=== PATIENT | female | born 1970 | race Caucasian/White ===

== ENCOUNTER 2019-11-07 13:45 | Outpatient (CLI) | payer OTHER, BC, SELFPAY ==
--- NOTE | 2019-11-07 14:00 | DI.RAD_ITS ---
EXAM: XR SHOULDER LT COMPLETE 2+V INDICATION: Pain. COMPARISON: No exams were available for comparison TECHNIQUE: 2D digital imaging was performed. FINDINGS: No bone or joint abnormality is identified. The soft tissues are unremarkable.
--- NOTE | 2019-11-07 14:01 | DI.RAD_ITS ---
EXAM: XR SHOULDER RT COMPLETE 2+V INDICATION: Pain. COMPARISON: XR SHOULDER LT COMPLETE 2+V from 11/07/2019 TECHNIQUE: 2D digital imaging was performed. FINDINGS: No bone, joint or soft tissue abnormality is identified.
--- NOTE | 2019-11-07 14:31 | DI.RAD_ITS ---
EXAM: XR CERVICAL SP RED TRAUMA 2-3V INDICATION: Pain. COMPARISON: No exams were available for comparison TECHNIQUE: 2D digital imaging was performed. FINDINGS: There is normal alignment of the cervical spine. There is disc space narrowing at C4-5 and C5-C6. T here are endplate osteophytes present from C3-4 through C6-C7. The bones are normally mineralized. The prevertebral soft tissues are unremarkable. IMPRESSION: Moderate degenerative changes in the cervical spine.
== END 2019-11-07 14:05 ==
PROVIDERS: PCP Nurse Practitioner Family; Visit Provider Student in an Organized Health Care Education/Training Program
DX: M54.2 Cervicalgia (principal); M50.320 Other cervical disc degeneration, mid-cervical region, unspecified level; M50.323 Other cervical disc degeneration at C6-C7 level; M25.511 Pain in right shoulder; M25.512 Pain in left shoulder
CPT/HCPCS: 72040; 73030

== ENCOUNTER 2019-11-17 03:38 | Outpatient (CLI) | payer OTHER, SELFPAY ==
--- NOTE | 2019-11-17 09:16 | DI.MRI_ITS ---
EXAM: MR CERVICAL SPINE WO CLINICAL HISTORY: CERVICAL SPONDYLOSIS WITH RADICULOPATHY X 3 YEARS, M54.12. TECHNIQUE: Multiplanar multisequence MRI was performed. COMPARISON: XR CERVICAL SP RED TRAUMA 2-3V from 11/07/2019 FINDINGS: There is normal signal in the spinal cord. There is no evidence of tonsillar ectopia. At C7-T1, there is no focal disc herniation, central spinal canal or neural foraminal stenosis. At C6-C7, there is mild prominence of the osteophyte-disc complex. There is mild narrowing of the ce ntral spinal canal. No significant neural foraminal stenosis is seen. At C5-C6, there is mild prominence of the osteophyte-disc complex causing mild narrowing of the centr al spinal canal. No significant neural foraminal stenosis is seen. At C4-C5, there is prominence of the osteophyte-disc complex. This causes mild narrowing of the cent ral spinal canal. There are hypertrophic changes of the uncovertebral joint on the left causing mode rate left neural foraminal stenosis. No significant right neural foraminal stenosis is present. At C3-C4, there is mild prominence of the osteophyte-disc complex. No significant central spinal can al stenosis is seen. Mild hypertrophy of the left uncovertebral joint is present causing mild narrow ing of the left neural foramen. Significant right neural foraminal stenosis is present. At C2-C3, there is no focal disc herniation, central spinal canal or neural foraminal stenosis. IMPRESSION: Multilevel degenerative changes in the cervical spine resulting in multilevel central spinal canal an d neural foraminal stenosis as described above.
== END 2019-11-17 03:58 ==
PROVIDERS: PCP Nurse Practitioner Family; Visit Provider Student in an Organized Health Care Education/Training Program
DX: M54.2 Cervicalgia (principal); M54.12 Radiculopathy, cervical region; M25.78 Osteophyte, vertebrae; M47.22 Other spondylosis with radiculopathy, cervical region
CPT/HCPCS: 72141

== ENCOUNTER 2021-05-20 02:56 | Outpatient (CLI) | payer OTHER, SELFPAY ==
[2021-05-20 13:14] LABS: Source Nasal/Nares
[2021-05-20 16:28] LABS: COVID-19 PCR Negative (Negative)
== END 2021-05-20 02:57 | disposition home or self-care (01) ==
LOC: LBO 02:56
PROVIDERS: PCP Nurse Practitioner Family; Visit Provider Student in an Organized Health Care Education/Training Program
DX: Z20.822 Contact with and (suspected) exposure to COVID-19 (principal); Z01.818 Encounter for other preprocedural examination
CPT/HCPCS: 87635

== ENCOUNTER 2021-05-22 08:22 | Day surgery (SDC) | payer OTHER, SELFPAY ==
[2021-05-22] VITALS (9 sets, daily range): BP systolic 144–161; BP diastolic 80–95; PULSE 55–73; RESP 16–21; TEMP 36–36.5; O2SAT 94–100; BMI 25.8
--- NOTE | 2021-05-22 09:06 | W.ANESPRE ---
General Info Date of Service Date Performed: 05/22/21 Height: 5 ft 10 in Weight: 81.647 kg Body Mass Index (BMI): 25.8 Surgical Procedure: Operation Date: 05/22/21 10:40 Proposed Procedures Side Surgeon p shoulder arthroscopy with extensive debridement,subacromal decompression, possible rotator cuff Right Ross Lin MD s Shoulder Bicep Tenodesis Right Ross Lin MD Meds Allergies and Home Medications Allergies Allergy/AdvReac Type Severity Reaction Status Date / Time No Known Allergies Allergy Verified 05/22/21 08:42 Home Medication Medication Instructions Recorded [id number]-qfrimtedeuozs-nniryyay 250 2 tab PO Q6H PRN 06/20/18 mg-250 mg-65 mg tablet diclofenac potassium 50 mg tablet 50 mg PO BID 10/23/19 topiramate 25 mg capsule,extended 25 mg PO BID cap 02/15/20 release 24 hr lorazepam 0.5 mg tablet 0.5 mg PO TID PRN 05/07/20 cyclobenzaprine 10 mg tablet 5 mg PO HS tab 04/09/21 duloxetine 60 mg PO DAILY 05/20/21 sumatriptan succinate 50 mg PO PRN PRN 05/20/21 Current Visit Medications: Current Medications Generic Name Dose Route Start Last Admin Trade Name Freq PRN Reason Stop Dose Admin Ringer's Solution 1,000 mls @ 100 mls/hr 05/22/21 06:00 IV 06/20/21 23:59 INFUSION HONG Cefazolin Sodium 2,000 mg/ 100 mls @ 200 mls/hr 05/22/21 06:00 Sodium Chloride IVPB 05/22/21 16:00 PREOP HONG IV Miscellaneous Supplies 1 each 05/22/21 06:00 Iv Access IV 06/20/21 23:59 DIRECTED HONG Sodium Chloride 0 ml 05/22/21 06:00 Normal Saline Flush 10 Ml Syr IV 06/20/21 23:59 PRN PRN Sodium Chloride 0 ml 05/22/21 06:00 Normal Saline 10 Ml Vial IJ 06/20/21 23:59 DIRECTED PRN Sterile Water 0 ml 05/22/21 06:00 Water,Injection,Sterile 10 Ml Vial IJ 06/20/21 23:59 DIRECTED PRN PFSH Active Problems Active Problems: Problem Status Onset Code Shoulder impingement syndrome M75.40 Screening for breast cancer Z12.39 Breast mass N63.0 Preventative health care Z00.00 Rhomboid pain M79.18 SLAP lesion of right shoulder ~01/2017 S43.431A Bilateral shoulder bursitis M75.51, M75.52 Tendonitis of long head of biceps brachii of right shoulder M75.21 Scapular dyskinesis G25.89 Cubital tunnel syndrome on right G56.21 Carpal tunnel syndrome on right G56.01 Cervical spondylosis with radiculopathy ~01/2017 M47.22 Partial tear of rotator cuff ~01/2017 M75.110 Scapulothoracic bursitis of right shoulder M75.51 Arthritis of right acromioclavicular joint M19.011 Right shoulder pain M25.511 Former smoker Z87.891 Medical History Medical History Former smoker Right shoulder pain Surgical History Surgical History Hx of bursectomy Tobacco Smoking/Tobacco Use Status: Former Tobacco Use Alcohol Alcohol Intake: current Alcohol intake frequency: a few times a month Substance Use Substance use type: does not use Vital Signs and Lab Results Vital Signs Most Recent Vital Signs in EMR: Most Recent Vital Signs Temp Pulse Resp BP Pulse Ox 36.4 C L 73 16 147/85 H 100 05/22/21 08:28 05/22/21 08:28 05/22/21 08:28 05/22/21 08:28 05/22/21 08:28 Lab Results Blood Type / Crossmatch: No Data to Display Complete Blood Count: No Data to Display Complete Metabolic Panel: No Data to Display Liver Function Panel: No Data to Display Coagulation Panel: No Data to Display Cardiac Panel: No Data to Display Arterial Blood Gas: No Data to Display Venous Blood Gas: No Data to Display Pancreas Panel: No Data to Display Thyroid Panel: No Data to Display Infectious Disease: Coronavirus (COVID-19)(PCR) Negative (Negative) 05/20/21 12:13 05/20/21 Coronavirus 2019 Source Nasal/Nares 05/20/21 12:13 05/20/21 Blood Cultures: No Data to Display Toxicology Panel: No Data to Display Panel: No Data to Display Anesthesia Assessment and Plan Anesthesia History Personal History: No History of Anesthesia Complications Family History: No Family History of Anesthesia Complications Exercise Tolerance Exercise Tolerance: Metabolic Equivalents>4 Pertinent Negatives Pertinent Negatives: No Symptoms of GERD, No Major Cardiovascular Symptoms or Complaints, No Major Pulmonary Symptoms or Complaints and No History of CVA/TIA Cardiac & Pulmonary Exam Cardiac Exam: Normal S1/S2 Heart Sounds Pulmonary Exam: Clear Bilateral Breath Sounds Airway Exam Known Difficult Airway: No Mallampati Class: 1 Mouth Opening: Normal (> 3cm) Thyromental Distance: Greater than 3 cm Neck Range of Motion: Full ROM Neck Circumference: Normal Teeth Condition: Normal Dentition ASA Classification ASA Score: ASA 2 Emergency Case?: No NPO Status NPO Status: NPO Clears >2 hours, Solids >8 hours Status Status: Negative HCG Anesthesia Plan Resuscitation Status: Full Code Anesthesia Technique: General Anesthesia Airway Planned: Endotracheal Tube Monitors Used: Standard Monitors Preoperative Comments:: Interscalene Nerve Block
[2021-05-22] MEDS: Lactated Ringers 1,000 ML 100 ML IV ×2 (09:09→11:21)
[2021-05-22] MEDS: ceFAZolin 2,000 MG in Normal Saline 100 ML 200 MG IVPB (10:20)
--- NOTE | 2021-05-22 11:05 | W.ANESNERVE ---
Nerve Block Single Injection Procedure Date and Time Date Performed: 05/22/21 Procedure Start: 09:47 Location Where Procedure Performed Procedure Location: PACU Reason Performed: Postoperative Analgesia Requesting Provider: Delia Timeout Performed Timeout Performed: Yes Monitoring Used ECG, Blood Pressure and SpO2 Sterility Sterility: Hand Hygiene, Surgical Cap, Surgical Mask, Sterile Gloves, Sterile Drape/Sheet, Eye Protection and Chlorhexidine Sedation Given During Procedure Sedation Given (Indicate Dose Given): Versed IV Dose:: 2 mg Patient Mental Status Patient Mental Status: Sedate with meaningful communication Nerve Block 1st Nerve Block: Laterality: Right Block Type: Interscalene Needle / Catheter Used: 100mm SonoPlex II Local Anesthetic Bolus (Indicate Dose Given): Lidocaine used for local infiltration of skin (2 cc), Injected in 3-5ml increments after negative blood aspiration, Bupivacaine 0.5% Dose:: 10 cc and Exparel Dose:: 10cc Additives (Indicate Dose Given): None Ultrasound: Sterile probe cover and gel used Ultrasound Image Saved?: Yes Nerve Stimulator: Not Used Paresthesia: None Procedure Tolerated: No Complications and Patient tolerated well Procedure Outcome: Successful Performed By: Ba Villanueva
--- NOTE | 2021-05-22 12:10 | W.PM.DSUDISC ---
Discharge Plan Disposition Patient Disposition: HOME Condition: Stable Discharge Details Reason For Visit: Right shoulder surgery Attending Provider: Ross Lin Primary Care Provider: Nataly Cornejo Home Meds and New Rx's Prescriptions: New naproxen 250 mg tablet 250 - 500 mg PO BID PRN (Reason: Moderate pain or swelling) Qty: 60 RF: 0 aspirin 81 mg tablet,delayed release (DR/EC) 81 mg PO DAILY 14 Days Qty: 14 RF: 0 tramadol 50 mg Tablet 50 mg PO Q8H PRN PRN (Reason: severe pain) Qty: 16 RF: 0 Continued Excedrin Migraine 250-250-65 mg tablet 2 tab PO Q6H PRNRF: 0 topiramate 25 mg capsule,extended release 24hr 25 mg PO BID RF: 0 lorazepam 0.5 mg tablet 0.5 mg PO TID PRNRF: 0 diclofenac potassium 50 mg tablet 50 mg PO BID RF: 0 cyclobenzaprine 10 mg tablet 5 mg PO HS RF: 0 sumatriptan succinate 50 mg tablet 50 mg PO PRN PRNRF: 0 duloxetine 60 mg capsule,delayed release(DR/EC) 60 mg PO DAILY RF: 0 Discharge Instructions Additional Instructions: Surgery: Shoulder arthroscopy with biceps tenodesis, extensive debridement, subacromial decompression, and distal clavicle excision. Activity: You should gradually increase range of motion motion and use of your shoulder. Please perform daily stretching exercises. You may use your shoulder for all regular activities. Lifting limit 5 pounds for 4 weeks. Avoid heavy lifting, reaching overhead, and lifting away from body for about 8 weeks. You may use the sling whenever you are out of the house for a few weeks. At home it is best to remove the sling and rest the arm on a pillow at your side or support the operative side with your other hand. A physical therapy prescription will be sent electronically to start in about 2 weeks. Prescriptions: Aspirin 81 mg take 1 daily to prevent a blood clot for 2 weeks Naproxen 250 mg take 1-2 every 12 hours with a meal as needed for moderate pain Tramadol 50 mg take 1 every 8 hours as needed for severe pain You may use [id number] Tylenol (acetaminophen) as needed for mild pain. These pain medications may be taken all at once or in different combinations as needed. Also, recommend Colace (docusate) as a stool softener as surgery and pain medicine cause constipation. And ngpm-koy-cabyxes diphenhydramine (Benadryl) 25-50 mg may be used as a sleep aid Dressings: Remove shoulder bandage after 3 days. Leave the sticky Steri-Strips in place until they fall off or remove them after you shower. Cover the incisions with Band-Aids or leave them open to air. You may shower after 5 days. Follow-up: 10-[address] Lin (1:00PM on 06/04/21) You may take off the leg compression stockings this evening at home. You may also leave them on a few days longer if you have a history of leg swelling or edema. Let us know right away if you develop any redness, drainage, fevers, chest pain, or trouble breathing. Do not drink alcohol or drive for at least 24 hours after anesthesia. Please call the office during business hours with any questions or concerns. Referrals: Ross Lin MD [ [facility] STAFF PHYSICIAN] - 06/04/21 1:00 pm Discharge Orders Discharge Orders: Discharge Order (Routine); Ordered 05/22/21 Ordered By: Ross Lin DS: Diagnosis Discharge Diagnosis (1) Bilateral shoulder bursitis: Status: Acute (2) Tendonitis of long head of biceps brachii of right shoulder: Status: Acute (3) SLAP lesion of right shoulder: Status: Acute (4) Partial tear of rotator cuff: Status: Acute (5) Arthritis of right acromioclavicular joint: Status: Acute (6) Shoulder impingement syndrome: Status: Acute
--- NOTE | 2021-05-22 12:58 | W.ANESPOSTOP ---
Postoperative Evaluation Date, Time and Location Date Performed: 05/22/21 Time Performed: 12:58 Patient Location: PACU Vital Signs Most Recent Imported Vital Signs: Most Recent Vital Signs Temp Pulse Resp BP Pulse Ox 36.1 C L 66 18 154/92 H 96 05/22/21 12:50 05/22/21 12:50 05/22/21 12:50 05/22/21 12:50 05/22/21 12:50 Pain Score Most Recent Pain Score: Most Recent Pain Score Pain Level 0 05/22/21 12:50 Assessment Mental Status: Awake (Alert & Oriented to Patient Baseline) Airway and Respiratory Function: Patent airway with normal (patient baseline) respiratory exam Cardiovascular Function: Hemodynamically Stable Hydration Status: Adequately Hydrated Nausea & Vomiting: No Nausea or Vomiting Pain: Pt. Denies Any Pain Peripheral Nerve Block: Patient did not receive a nerve block
[2021-05-22] MEDS: Methocarbamol 500 MG TAB 1000 MG PO (13:16)
--- NOTE | 2021-05-22 13:37 | ROE_ITS ---
Date of service: 05/22/21 Time of Service: 12:00 Operative Note Operative Note DATE OF PROCEDURE: 05/22/21 PRE-OP DIAGNOSIS: Right: 1. Rotator cuff tear 2. LHB tendinopathy 3. Bursitis 4. Impingement 5. AC joint pain POST-OP DIAGNOSIS: same PROCEDURE: Right: 1. Arthroscopic biceps tenodesis, CPT# 22900. This involved arthroscopically suturing and reattaching the long head of the biceps tendon to the proximal humerus at the superior margin of the bicipital groove with a screw at the correct tension. 2. Extensive debridement, CPT# 15296. This involved using arthroscopic hand inst ruments, power instruments, and radiofrequency instruments to release to release the long head of the biceps tendon and debride areas of labral tearing, SLAP tearing, synovitis, and chondromalacia about the biceps groove within the glenohumeral joint anteriorly, superiorly and posteriorly. 3. Arthroscopic distal clavicle excision, CPT# 49486. This involved arthroscopically exposing the underside of the acromioclavicular joint, smoothing out bone spurs, and removing approximately 5 mm of the distal clavicle so there was no bone left engaging the acromion. 4. Subacromial decompression with partial acromioplasty, CPT# 08434. This involved using arthroscopic power instruments and a radiofrequency wand to complete a bursectomy and remove bone spurs on the undersurface of the acromion. The special education teaching assistant was medically required in order to help assist in techniques above, which require positioning the arm, holding the arthroscope, and manipulating multiple instruments and sutures at the same time. This cannot be done without the help of an experienced special education teaching assistant. SURGEON: Ross Lin ANIMAL RIDE ATTENDANT: Madeline Huerta ANESTHESIA TYPE: General LMA/ETT and Primary Nerve Block Refer to Anesthesia Record ESTIMATED BLOOD LOSS: 15 PATHOLOGY: none sent COMPLICATIONS: None Patient was transported to: PACU Patient's condition: stable Implants: Arthrex: 4.75mm SwiveLocks x 1 Indications: The patient was diagnosed with the above conditions and appropriately indicated for surgical intervention. Please see complete medical record for details. Findings: Exam under anesthesia: Full range of motion. No instability. Positive crepitation with circumduction and posterior axial load. Glenohumeral joint: Significant Concord complex variant tear of the anterior labrum extending into the anterior superior labrum about the zone of deficient labrum from the glenoid rim into a almost completely detached SLAP tear about the biceps anchor with some tear extension posteriorly with posterior superior labral fraying and minor detachment. Long head biceps tendon injection. Intact subscapularis. Mild partial articular fraying of the anteriormost supraspinatus with minimal footprint involvement. Intact remainder of supraspinatus and infraspinatus. Mild chondromalacia about the bicipital groove and anterior supraspinatus injury. Normal less than 50% translation humeral head relative to the glenoid anteriorly and posteriorly. Subacromial space: Profound hemorrhagic bursitis. Mild subacromial undersurface bone spurring. Moderate impinging distal clavicle acromion with inferior underhanging of the distal clavicle. Significant injection about the bursal rotator cuff with only mild fraying somewhat diffuse and more hemorrhagic posteriorly and medially. Procedure Description: In the operating room, general anesthesia was induced. Bilateral shoulders were examined. The patient was positioned in the beachchair position. All bony prominences were well-padded. Preoperative antibiotics were administered. The shoulder was prepped and draped in the usual sterile fashion. The correct patient, procedure, and side of the procedure were all verified prior to incision. Starting through the posterior portal a standard complete diagnostic arthroscopy was performed of the glenohumeral joint including inspection of the long head of the biceps, anterior and superior labrum, subscapularis tendon, supraspinatus and infraspinatus tendons, and axillary recess. The glenoid and humeral head cartilage as well as the posterior labrum were inspected from an anterior viewing portal. Significant findings and interventions noted above. The Concord complex variant mentioned above was carefully dissected off the intact [facility] L and did reveal deficient anterior superior labrum from the glenoid, which did not appear pathologic but the displaced tissue was torn frayed and mobile impinging at the joint and did continue into the significant SLAP tear under the biceps anchor. In order to prevent postoperative stiffness, this anterior superior labral tearing was debrided with mechanical shaver and the tissue was quite friable and easily removed revealing a more normal expected cordlike [facility] L and absent anterior superior labrum. The anterior inferior labrum while somewhat diminutive was without obvious pathology. The SLAP tear was debrided pre and post biceps tenodesis to a stable margin to optimize healing. The posterior superior extension was minimally debrided of frayed edges. A rigid cannula was inserted anteriorly. An all-arthroscopic suprapectoral biceps tenodesis was performed through using a Loop N Tack method with a SutureTape FiberLink cinched around and through the tendon. The biceps was tenotomized from the superior labrum and fixated with a suture anchor at the superior margin of the bicipital groove at the appropriate tension. Starting through the posterior portal, the arthroscope was directed into the subacromial space. A lateral 50 yard line lateral portal was created. A combination of power instruments and a radiofrequency ablator were used to debride bursitis anteriorly, posteriorly, and laterally as well as expose and smooth bone spurring on the undersurface of the acromion. The coracoacromial ligament was preserved. The bursectomy was completed viewing laterally and working from posteriorly and the rotator cuff was thoroughly inspected with findings noted above. The anterior portal was redirected towards the undersurface of the AC joint. A shaver and electrocautery device were used to clear soft tissue from the undersurface of the AC joint. The distalmost 5 mm of the distal clavicle was then removed and smoothed. Care was taken to alternate between working through the anterior portal and viewing through the anterior portal to ensure that proper amount of bone was removed and there was no engaging bone left behind especially superiorly. The shoulder was drained of arthroscopic fluid. All portal sites were copiously irrigated. These incisions were closed using 3-0 Monocryl in a buried fashion and then covered with Mastisol, Steri-Strips, Xeroform, dry gauze, and ABDs. The dressings were covered and secured with Medipore tape. The operative extremity was placed into a sling for immobilization. The patient awoke from anesthesia without complication and was transferred to the recovery room in a stable condition.
== END 2021-05-22 14:35 | disposition home or self-care (01) ==
PROVIDERS: PCP Nurse Practitioner Family; Visit Provider Student in an Organized Health Care Education/Training Program
PROC: (CPT 29827; principal; 2021-05-22 10:30)
PROC: (CPT 23430; 2021-05-22 10:30)
DX: M75.51 Bursitis of right shoulder (principal); M75.21 Bicipital tendinitis, right shoulder; M75.111 Incomplete rotator cuff tear or rupture of right shoulder, not specified as traumatic; M19.011 Primary osteoarthritis, right shoulder; M75.41 Impingement syndrome of right shoulder
CPT/HCPCS: 29828; 29823; 29824; 29826; 81025; J0131; J0690; J1100; J1885; J2001; J2250; J2405

== ENCOUNTER 2022-02-19 19:10 | Outpatient (REF) | payer BC, SELFPAY ==
[2022-02-19 18:24] LABS: Anion Gap 8.5 mmol/L (3-11); BUN 15 mg/dL (7-18); CO2 24.5 mmol/L (21.0-32.0); CREATININE 0.9 mg/dL (0.55-1.02); Calcium 8.3 mg/dL (8.5-10.1); Chloride 108 mmol/L (98-107); Glucose 104 mg/dL (74-106); LDL CHOLESTEROL 115 mg/dL (<100); Potassium 4.3 mmol/L (3.5-5.1); Sodium 141 mmol/L (136-145)
== END 2022-02-19 19:11 | disposition home or self-care (01) ==
LOC: NCHCN 19:10
PROVIDERS: PCP Nurse Practitioner Family; Visit Provider Physician Assistant
DX: E78.5 Hyperlipidemia, unspecified (principal); F41.8 Other specified anxiety disorders; M75.21 Bicipital tendinitis, right shoulder
CPT/HCPCS: 80048; 83721

== ENCOUNTER 2022-07-02 09:40 | Day surgery (SDC) | payer BC, SELFPAY ==
--- NOTE | 2022-07-02 07:35 | W.ANESPRE ---
General Info Date of Service Date Performed: 07/02/22 Height: 5 ft 10 in Weight: 75.07 kg Body Mass Index (BMI): 23.7 Surgical Procedure: Operation Date: 07/02/22 11:50 Proposed Procedure Side Surgeon p Colonoscopy Sandrita Guerrero MD Meds Allergies and Home Medications Allergies Allergy/AdvReac Type Severity Reaction Status Date / Time No Known Allergies Allergy Verified 07/02/22 09:51 Home Medication Medication Instructions Recorded jvwlonm-jekhxubwyhxzy-dpefnxdg 250 2 tab PO Q6H PRN 06/20/18 mg-250 mg-65 mg tablet (Excedrin Migraine) duloxetine 60 mg capsule,delayed 60 mg PO DAILY 05/20/21 release sumatriptan succinate 50 mg tablet 50 mg PO PRN PRN 05/20/21 bisacodyl 5 mg tablet,delayed 5 mg PO ONCE #4 tabs 06/15/22 release (Dulcolax (bisacodyl)) polyethylene glycol 3350 17 17 g PO ONCE #238 grams 06/15/22 gram/dose oral powder Current Visit Medications: Current Medications Generic Name Dose Route Start Last Admin Trade Name Freq PRN Reason Stop Dose Admin Ringer's Solution 1,000 mls @ 80 mls/hr 07/02/22 06:00 IV 07/31/22 23:59 INFUSION HONG IV Miscellaneous Supplies 1 each 07/02/22 06:00 Iv Access IV 07/31/22 23:59 DIRECTED HONG Sodium Chloride 0 ml 07/02/22 06:00 Normal Saline Flush 10 Ml Syr IV 07/31/22 23:59 PRN PRN Sodium Chloride 0 ml 07/02/22 06:00 Normal Saline 10 Ml Vial IJ 07/31/22 23:59 DIRECTED PRN Sterile Water 0 ml 07/02/22 06:00 Water,Injection,Sterile 10 Ml Vial IJ 07/31/22 23:59 DIRECTED PRN PFSH Active Problems Active Problems: Problem Status Onset Code Panic disorder F41.0 Screening for colon cancer Z12.11 Medical History Medical History Arthritis of right acromioclavicular joint Bilateral shoulder bursitis Breast mass Carpal tunnel syndrome on right Cervical spondylosis with radiculopathy (~01/2017) Cubital tunnel syndrome on right Former smoker Migraine headache Partial tear of rotator cuff (~01/2017) Preventative health care Rhomboid pain Right shoulder pain Scapular dyskinesis Scapulothoracic bursitis of right shoulder Screening for breast cancer Shoulder impingement syndrome SLAP lesion of right shoulder (~01/2017) Tendonitis of long head of biceps brachii of right shoulder Vertigo Surgical History Surgical History Hx of bursectomy S/P laparoscopic appendectomy S/P tubal ligation Status post arthroscopy of right shoulder (05/22/21) Right shoulder arthroscopy with biceps tenodesis, extensive debridement, subacromial decompression, and distal clavicle excision Tobacco Smoking/Tobacco Use Status: Former Tobacco Use Alcohol Alcohol Intake: current Alcohol intake frequency: a few times a month Substance Use Substance use type: does not use Vital Signs and Lab Results Vital Signs Most Recent Vital Signs in EMR: Temp Pulse Resp BP Pulse Ox 36.4 C L 82 18 165/105 H 99 07/02/22 09:45 07/02/22 09:45 07/02/22 09:45 07/02/22 09:45 07/02/22 09:45 Lab Results Blood Type / Crossmatch: No Data to Display Complete Blood Count: No Data to Display Complete Metabolic Panel: No Data to Display Liver Function Panel: No Data to Display Coagulation Panel: No Data to Display Cardiac Panel: No Data to Display Arterial Blood Gas: No Data to Display Venous Blood Gas: No Data to Display Pancreas Panel: No Data to Display Thyroid Panel: No Data to Display Infectious Disease: No Data to Display Blood Cultures: No Data to Display Toxicology Panel: No Data to Display Panel: No Data to Display Anesthesia Assessment and Plan Anesthesia History Personal History: No History of Anesthesia Complications Family History: No Family History of Anesthesia Complications Exercise Tolerance Exercise Tolerance: Metabolic Equivalents>4 Cardiac & Pulmonary Exam Cardiac Exam: Normal S1/S2 Heart Sounds Pulmonary Exam: Clear Bilateral Breath Sounds Implantable Cardiac Device Does patient have a Pacemaker or an ICD?: No Airway Exam Known Difficult Airway: No Mallampati Class: 1 Mouth Opening: Normal (> 3cm) Thyromental Distance: Greater than 3 cm Neck Range of Motion: Full ROM Neck Circumference: Normal Teeth Condition: Normal Dentition ASA Classification ASA Score: ASA 2 Emergency Case?: No NPO Status NPO Status: NPO Clears >2 hours, Solids >8 hours Status Status: Not Relevant due to Medical History Anesthesia Plan Resuscitation Status: Full Code Anesthesia Technique: General Anesthesia Airway Planned: Natural Airway Monitors Used: Standard Monitors Preoperative Comments:: 52 yo female for colo. Sig PMHx: Cervical spondylsis, former smoker, occ EtOH Previous Anes: glide 3 grade 1, easy mask.
--- NOTE | 2022-07-02 07:51 | W.COLOREPORT ---
Colonoscopy Report Date of procedure: 07/02/22 Pre-op diagnosis general: colon cancer screening Post-op diagnosis procedure note: other (polyps) Procedure: Colonoscopy with polypectomy Surgeon: Sandrita Guerrero Anesthesia Type: General:No Airway Estimated blood loss (mL): 2 Pathology: other (descending polyps x3, sigmoid polyp x1) Complications: None Disposition: same day Indications: I was pleased to meet Liborio in the office today for screening colonoscopy.? She is 51 years old in a good state of health.? She is a little anxious about the procedure, but otherwise offers no specific complaints today.? She is got a normal and consistent bowel habits.? She denies melena, hematochezia, unintentional weight loss, or other signs of gastrointestinal illness.? She denies any family history of colorectal disease. Prep: Miralax/Dulcolax Procedure Start Time: 10:55 Procedure End Time: 11:22 Retraction Time: 16 minutes Findings: 5 small polyps Procedure Description: After informed consent was obtained the patient was taken to the procedure room and placed in a left decubitous position. Monitors were applied and a time out was done. The patients name, date of , procedure, allergies to medications and metal in their body was reviewed. The patient was then sedated. Once sedated and comfortable a rectal exam was done. External exam was normal. Internal exam revealed a normal sphincter tone and no palpable masses. The scope was then introduced and retro-flexed. No internal hemorrhoids, polyps or masses were identified on retro-flexion. The scope was then advanced to the cecum without difficulty. The ileocecal vlave and appendiceal orifice were identified. The prep was adequate. The scope was then slowly retracted over 16 minutes back into the rectum. Polyps were removed with cold forceps in the descending colon x3 and sigmoid colon x1. There was no diverticulosis noted. The scope was removed and the patient was woken up and taken back to Same day surgery in stable condition. The patient tolerated the procedure well and there were no immediate complications.
--- NOTE | 2022-07-02 07:54 | W.PM.DSUDISC ---
Discharge Plan Disposition Patient Disposition: HOME Condition: Good Discharge Details Reason For Visit: colonoscopy Attending Provider: Sandrita Guerrero Primary Care Provider: Aracely Alatorre Home Meds and New Rx's Prescriptions: Continued Excedrin Migraine 250-250-65 mg tablet 2 tab PO Q6H PRN sumatriptan succinate 50 mg tablet 50 mg PO PRN PRN Label Comments: TAKE ONE TABLET BY MOUTH AT ONSET OF HEADACHE MAY REPEAT IN TWO HOURS IF NECESSARY NO MORE THAN 2 TABLETS IN 24 HOURS duloxetine 60 mg capsule,delayed release(DR/EC) 60 mg PO DAILY Label Comments: TAKE ONE CAPSULE BY MOUTH EVERY DAY Discontinued bisacodyl [Dulcolax (bisacodyl)] 5 mg tablet,delayed release (DR/EC) 5 mg PO ONCE Qty: 4 0RF Rx Instructions: Take according to provider's instructions for colonoscopy prep. polyethylene glycol 3350 17 gram/dose powder 17 g PO ONCE Qty: 238 0RF Rx Instructions: To be taken as directed by prescriber's office for colonoscopy prep. Discharge Instructions Instructions: Colorectal Polyps (DC) Additional Instructions: Findings: 5 polyps Follow up: Most likely 5 years Please call if you develop: fevers >101.5 Nausea or Vomiting Abdominal pain that is not transient Rectal bleeding that is more then a tbsp A hard abdomen and inability to pass gas DAY SURGERY UNIT POST ENDOSCOPY INSTRUCTIONS Instructions for everyone who is given Anesthesia: For your safety, please do the following for the next 24 Hours: a. Do not drive or operate dangerous equipment b. Do not drink alcohol beverages or use any recreational drugs for the first 24 hours or while taking pain medications. The medications in your body may have a reaction that can be dangerous. c. Do not make any important decisions or sign any important papers 1. Generally there are no restrictions on your activity after a day or so has gone by, but you may feel a bit fatigued for a few days. 2. After you arrive home you may have a light meal and return to a normal diet as you can tolerate it without feeling sick to your stomach. 3. After surgery, you may feel pain or discomfort. This should be only transient, but if it persists please contact your doctor. 4. If there are any questions regarding the findings of your procedure, please feel free to contact your doctor. 6. If you are unable to contact your doctor with a problem, contact the hospital at [phone]. 0. Continue all your regular medications unless directed otherwise. I understand the above instructions and have no questions. Signature of Patient or Responsible Adult Escort Date/Time Name of Responsible Adult Escort Signature of Nurse Date/Time Activity:: Activity as Tolerated Diet:: As Tolerated Discharge Orders Discharge Orders: Discharge Order (Routine); Ordered 07/02/22 Ordered By: Sandrita Guerrero
[2022-07-02 09:45] VITALS: BP 165/105; PULSE 82; RESP 18; TEMP 36.4; O2SAT 99
[2022-07-02 10:03] VITALS: BMI 23.7
[2022-07-02] MEDS: Lactated Ringers 1,000 ML 80 ML IV (10:17)
--- NOTE | 2022-07-02 11:15 | BOWEL_PTH ---
PATIENT: Liborio Irizarry LOC: [facility] U#:[id number] AGE/SX: 52/F ROOM: RE07/02/[address]: Sandrita Guerrero MD : 1970 BED: DIS: 07/02/2022 SPEC #: [id number] RECD: 07/02/22 12:51 STATUS: DELIA REQ #: [id number] HEATH: 07/02/22 11:[address]: Sandrita Guerrero DEPT: Surgical Specimen RECD BY: Chelsie Vital ENTERED: 07/02/22 12:52 SP TYPE: Bowel OTHR DR: Aracely Alatorre Tissues: 1 - BIOPSY BOWEL 2 - BIOPSY BOWEL Procedures: GROSS AND MICRO LEVEL 4 Comments: [id number]
[2022-07-02 11:30] VITALS: BP 142/95; PULSE 68; RESP 14; TEMP 36.1; O2SAT 98
[2022-07-02 12:00] VITALS: BP 148/82; PULSE 63; RESP 17; TEMP 36.4; O2SAT 99
--- NOTE | 2022-07-02 12:15 | W.ANESPOSTOP ---
Postoperative Evaluation Date, Time and Location Date Performed: 07/02/22 Time Performed: 11:40 Patient Location: Day Surgery Unit Vital Signs Most Recent Imported Vital Signs: Most Recent Vital Signs Temp Pulse Resp BP Pulse Ox 36.1 C L 68 14 142/95 H 98 07/02/22 11:30 07/02/22 11:30 07/02/22 11:30 07/02/22 11:30 07/02/22 11:30 Pain Score Most Recent Pain Score: Most Recent Pain Score Pain Level 0 07/02/22 11:30 Assessment Mental Status: Awake (Alert & Oriented to Patient Baseline) Airway and Respiratory Function: Patent airway with normal (patient baseline) respiratory exam Cardiovascular Function: Hemodynamically Stable Hydration Status: Adequately Hydrated Nausea & Vomiting: No Nausea or Vomiting Pain: Pt. Denies Any Pain Peripheral Nerve Block: Patient did not receive a nerve block
== END 2022-07-02 12:28 | disposition home or self-care (01) ==
LOC: SUR 09:41
PROVIDERS: PCP Physician Assistant; Visit Provider Surgery
PROC: 0DJD8ZZ Inspection of Lower Intestinal Tract, Via Natural or Artificial Opening Endoscopic (ICD-10-PCS; CPT 45378; principal; 2022-07-02 11:00)
DX: Z12.11 Encounter for screening for malignant neoplasm of colon (principal); K63.5 Polyp of colon; G43.909 Migraine, unspecified, not intractable, without status migrainosus; Z87.891 Personal history of nicotine dependence
CPT/HCPCS: 45380; 88305

== ENCOUNTER 2023-02-23 15:46 | Outpatient (REF) | payer BC, SELFPAY ==
[2023-02-23 19:11] LABS: Anion Gap 6.6 mmol/L (3-11); BUN 14 mg/dL (7-18); CO2 27.4 mmol/L (21.0-32.0); CREATININE 0.9 mg/dL (0.55-1.02); Chloride 103 mmol/L (98-107); Glucose 108 mg/dL (74-106); Potassium 4.7 mmol/L (3.5-5.1); Sodium 137 mmol/L (136-145)
== END 2023-02-23 15:47 | disposition home or self-care (01) ==
LOC: NCHCN 15:46
PROVIDERS: PCP Physician Assistant; Visit Provider Physician Assistant
DX: I10 Essential (primary) hypertension (principal)
CPT/HCPCS: 80048

== ENCOUNTER 2023-04-21 11:15 | Outpatient (REF) | payer BC, SELFPAY ==
--- NOTE | 2023-04-21 08:30 | PAPFT_PTH ---
PATIENT: Liborio Irizarry LOC: [facility] U#:[id number] AGE/SX: 52/F ROOM: RE04/21/[address]: Aracely Alatorre : 1970 BED: DIS: 04/21/2023 SPEC #: [id number] RECD: 04/22/23 12:45 STATUS: DELIA REJessica #: [id number] HEATH: 04/21/23 08:[address]: Aracely Alatorre DEPT: [facility] Cytology RECD BY: Chelsie Vital Tissues: 1 - CX/ENDOCX FOR PAP SMEARS Procedures: PAP THIN PREP/UVM Screening HPV DNA PROBE Comments: [id number]
== END 2023-04-21 11:16 | disposition home or self-care (01) ==
LOC: NCHCN 11:15
PROVIDERS: PCP Physician Assistant; Visit Provider Physician Assistant
DX: Z11.51 Encounter for screening for human papillomavirus (HPV) (principal); Z12.4 Encounter for screening for malignant neoplasm of cervix; Z01.419 Encounter for gynecological examination (general) (routine) without abnormal findings
CPT/HCPCS: 88142; 87624

== ENCOUNTER 2024-02-16 20:51 | Outpatient (REF) | payer BC, SELFPAY ==
[2024-02-16 20:55] LABS: Anion Gap 6.8 mmol/L (3-11); BUN 21 mg/dL (7-18); CO2 26.2 mmol/L (21.0-32.0); CREATININE 0.8 mg/dL (0.55-1.02); Calcium 9.2 mg/dL (8.5-10.1); Chloride 103 mmol/L (98-107); Glucose 96 mg/dL (74-106); LDL CHOLESTEROL 98 mg/dL (<100); Potassium 4.2 mmol/L (3.5-5.1); Sodium 136 mmol/L (136-145)
== END 2024-02-16 20:52 | disposition home or self-care (01) ==
LOC: NCHCN 20:51
PROVIDERS: PCP Physician Assistant; Visit Provider Physician Assistant
DX: I10 Essential (primary) hypertension (principal)
CPT/HCPCS: 80048; 83721

== ENCOUNTER 2024-09-12 14:54 | Outpatient (CLI) | payer BC, SELFPAY ==
--- NOTE | 2024-09-12 14:44 | DI.RAD_ITS ---
Exam(s) XR SHOULDER LT COMPLETE 2+V EXAM: XR SHOULDER LT COMPLETE 2+V CLINICAL HISTORY: LEFT SHOULDER PAIN. TECHNIQUE: 2D digital imaging was performed. Three views. COMPARISON: CR XR SHOULDER LT COMPLETE 2+V from 11/07/2019 FINDINGS: BONES: No acute fracture is present. No bony destructive lesion is seen. JOINTS: No dislocation present. No significant degenerative changes at the AC joint or glenohumeral joint. SOFT TISSUE: Normal. IMPRESSION: Unremarkable radiographs of the left shoulder. DATA REPOSITORY: RADIATION DOSE DELIVERED:
== END 2024-09-12 14:55 | disposition home or self-care (01) ==
LOC: DIORS 14:54
PROVIDERS: PCP Physician Assistant; Visit Provider Student in an Organized Health Care Education/Training Program
DX: M25.512 Pain in left shoulder (principal)
CPT/HCPCS: 73030

== ENCOUNTER 2024-10-12 03:53 | Outpatient (CLI) | payer BC, SELFPAY ==
--- NOTE | 2024-10-12 07:00 | DI.MRI_ITS ---
Exam(s) MR UPPER JOINT LT WO EXAM: MR UPPER JOINT LT WO CLINICAL HISTORY: L SHOULDER PAIN,TENDINOPATHY LT BICEPS,M67.922,SLAP TEAR,M67.922. TECHNIQUE: Multiplanar multisequence MRI was performed. COMPARISON: MR MR SHOULDER RT WO CONTRAST from 02/08/2017 CR XR SHOULDER LT COMPLETE 2+V from 09/12/2024 FINDINGS: BONES: There is no fracture or contusion pattern. JOINTS: There are mild degenerative changes seen at the acromioclavicular joint. The glenohumeral oliva nt is normal. There is a small amount of fluid in the joint space. There is a 5 mm loose body seen in the dependent portion of the glenohumeral joint. TENDONS: Supraspinatus: There is tendinosis of the supraspinatus tendon without evidence of a tear. Infraspinatus: Unremarkable. Subscapularis: There is tendinosis of the subscapularis tendon. Teres Minor: Unremarkable. Biceps and [place]: Unremarkable. MUSCLES: Unremarkable. GLENOID LABRUM: There is some blunting of the edge is of the labrum posteriorly and posterior superio rly which may represent degeneration. The labrum is otherwise unremarkable. SOFT TISSUES: Unremarkable. LIGAMENTS: Unremarkable. OTHER: There is a small amount of fluid seen in the subacromial subdeltoid bursa. IMPRESSION: 1. Tendinosis of the supraspinatus and subscapularis tendons without pete tear. 2. Small glenohumeral joint effusion and a 5 mm loose body. 3. Mild degenerative changes of the acromioclavicular joint. 4. Mild degenerative changes seen in the labrum. 5. Small amount of fluid seen in the subacromial subdeltoid bursa. This can be seen with bursitis. DATA REPOSITORY:
== END 2024-10-12 04:13 ==
LOC: DI 03:53
PROVIDERS: PCP Physician Assistant; Visit Provider Student in an Organized Health Care Education/Training Program
DX: S43.432D Superior glenoid labrum lesion of left shoulder, subsequent encounter; X58.XXXD Exposure to other specified factors, subsequent encounter
CPT/HCPCS: 73221

== ENCOUNTER 2024-10-18 15:55 | Outpatient (CLI) | payer BC, SELFPAY ==
--- NOTE | 2024-10-18 08:30 | DI.RAD_ITS ---
Exam(s) XR SHOULDER RT COMPLETE 2+V EXAM: XR SHOULDER RT COMPLETE 2+V CLINICAL HISTORY: right shoulder pain. TECHNIQUE: 2D digital imaging was performed. Two views. COMPARISON: CR XR SHOULDER LT COMPLETE 2+V from 09/12/2024 MR MR UPPER JOINT LT WO from 10/12/2024 FINDINGS: BONES: No acute fracture is present. No bony destructive lesion is seen. Mild spurring at tip of acr omion. JOINTS: No dislocation present. Glenohumeral joint space is maintained. AC joint is not widened. SOFT TISSUE: Normal. IMPRESSION: Mild degenerative changes. DATA REPOSITORY: RADIATION DOSE DELIVERED:
== END 2024-10-18 15:56 | disposition home or self-care (01) ==
LOC: DIORS 15:55
PROVIDERS: PCP Physician Assistant; Visit Provider Physician Assistant
DX: M25.511 Pain in right shoulder (principal)
CPT/HCPCS: 73030

== ENCOUNTER 2024-12-14 11:47 | Day surgery (SDC) | payer BC, SELFPAY ==
--- NOTE | 2024-12-14 10:13 | W.PM.DSUDISC ---
Date of service: 12/14/24 Discharge Plan Disposition Patient Disposition: Home Condition: Stable Discharge Details Attending Provider: Ross Lin Primary Care Provider: Aracely Alatorre Home Meds and New Rx's Prescriptions: New naproxen 250 mg tablet 250 - 500 mg PO BID PRN (Reason: Moderate pain) Qty: 40 0RF oxycodone 5 mg tablet 5 - 10 mg PO Q4H PRN (Reason: Moderate to severe pain) Qty: 18 0RF Continued Excedrin Migraine 250-250-65 mg tablet 2 tab PO Q6H PRN lisinopril 2.5 mg tablet 2.5 mg PO DAILY sumatriptan succinate 50 mg tablet 50 mg PO PRN PRN Patient Comments: TAKE ONE TABLET BY MOUTH AT ONSET OF HEADACHE MAY REPEAT IN TWO HOURS IF NECESSARY NO MORE THAN 2 TABLETS IN 24 HOURS duloxetine 60 mg capsule,delayed release(DR/EC) 60 mg PO DAILY Patient Comments: TAKE ONE CAPSULE BY MOUTH EVERY DAY Discharge Instructions Additional Instructions: Surgery: Left shoulder arthroscopy with [rotator cuff repair, biceps tenodesis, extensive debridement, and subacromial decompression.] Activity: [For 6 weeks,] you should keep your arm at your side in a neutral position at all times except for physical therapy. Do not try to lift or raise your arm using your own muscles. You should use the sling whenever you are out of the house. At home it is best to remove the sling and rest the arm on a pillow at your side or support the operative side with your other hand. You may allow the arm to dangle at your side. A physical therapy prescription will be sent electronically to begin in about 3 weeks. [You should gradually increase range of motion motion and use of your shoulder. You may use your shoulder for all regular activities while protecting biceps repair. Avoid any weighted elbow flexion or resisted supination for 6-8 weeks. No heavy lifting, reaching overhead, or lifting away from body for approximately 2-3 months. You may use the sling whenever you are out of the house for a few weeks. At home it is best to remove the sling and rest the arm on a pillow at your side or support the operative side with your other hand. A physical therapy prescription will be sent electronically to start in about 2 weeks.] Prescriptions: Naproxen 250 mg take 1-2 every 12 hours with a meal as needed for moderate pain Oxycodone 5 mg take 1-2 every 4-6 hours as needed for severe pain You may use cgnc-erx-bnkjabf Tylenol (acetaminophen) as needed for mild pain. These pain medications may be taken all at once or in different combinations as needed. Also, recommend Colace (docusate) as a stool softener as surgery and pain medicine cause constipation. You may try smxt-ndx-vjwibjl diphenhydramine (Benadryl) 25-50 mg nightly as a sleep aid Dressings: Remove shoulder bandage after 3 days. Leave the sticky Steri-Strips in place until they fall off or remove them after you shower. Cover the incisions with Band-Aids or leave them open to air. [The biceps bandage (inside upper arm) is glued on separately. You may leave this one on a few days longer if it is difficult to remove. There is also glue underneath this bandage that can be left in place until it peels off.] You may shower after 5 days. Follow-up: 10-[address] Lin You may take off the leg compression stockings this evening at home. You may also leave them on a few days longer if you have a history of leg swelling or edema. Let us know right away if you develop any redness, drainage, fevers, chest pain, or trouble breathing. Do not drink alcohol or drive for at least 24 hours after anesthesia. Please call the office during business hours with any questions or concerns. Discharge Orders Discharge Orders: Discharge Order (Routine); Ordered 12/14/24 Ordered By: Luther Trujillo DS: Diagnosis Discharge Diagnosis (1) Superior labrum zagywkpy-am-cpesqjbyz (SLAP) tear of left shoulder: Status: Acute (2) Tendinopathy of left biceps: Status: Acute (3) Loose body in left shoulder: Status: Acute
[2024-12-14 12:10] VITALS: BP 181/106; PULSE 65; RESP 16; TEMP 36.2; O2SAT 99
[2024-12-14 12:45] VITALS: BP 174/96
--- NOTE | 2024-12-14 13:46 | PDOC.ANES ---
Date of service: 12/14/24 Time of Service: 13:46 Anesthesia Note Report Anesthesia Note: Patient presented to [facility] today (with her ) in walking boot after follow up at [facility] for 5th metatarsal oblique spiral fracture. After discussion with risk management and director of research and development here at [facility], it was decided the safest option for the patient would be to postpone her elective RCR surgery until she no longer required the walking boot. The message was relayed to the patient, explained rationale of same-sided surgery and risk for fall. Patient verbalized disappoint with postponement, but understood rationale. The patient will follow up with Dr. Lin and reschedule with the office when her foot has healed. Additionally, discussed blood pressure management and encouraged patient to track her blood pressure at home and reach out to her PCP about better control-- particularly with beach chair positioning.
== END 2024-12-14 11:48 | disposition home or self-care (01) ==
LOC: SUR 11:48
PROVIDERS: PCP Physician Assistant; Visit Provider Student in an Organized Health Care Education/Training Program
DX: Z53.9 Procedure and treatment not carried out, unspecified reason (principal)
CPT/HCPCS: J1100; J1805; J2003; J2250; J2371; J2405; J2704

== ENCOUNTER 2025-01-12 09:43 | Day surgery (SDC) | payer BC, SELFPAY ==
[2025-01-12] VITALS (34 sets, daily range): BP systolic 137–192; BP diastolic 74–106; PULSE 48–76; RESP 10–22; TEMP 36.2–36.7; O2SAT 92–100; BMI 26.6
--- NOTE | 2025-01-12 07:11 | PDOC.DSDIS_ITS ---
Date of service: 01/12/25 Discharge Plan Disposition Patient Disposition: Home Condition: Stable Discharge Details Attending Provider: Ross Lin Primary Care Provider: Aracely Alatorre Home Meds and New Rx's Prescriptions: New naproxen 250 mg tablet 250 - 500 mg PO BID PRN (Reason: moderate pain and swelling) Qty: 40 0RF tramadol 50 mg tablet 50 mg PO Q8H PRN (Reason: severe pain) Qty: 12 0RF Continued Excedrin Migraine 250-250-65 mg tablet 2 tab PO Q6H PRN lisinopril 2.5 mg tablet 2.5 mg PO DAILY sumatriptan succinate 50 mg tablet 50 mg PO PRN PRN Patient Comments: TAKE ONE TABLET BY MOUTH AT ONSET OF HEADACHE MAY REPEAT IN TWO HOURS IF NECESSARY NO MORE THAN 2 TABLETS IN 24 HOURS duloxetine 60 mg capsule,delayed release(DR/EC) 60 mg PO DAILY Patient Comments: TAKE ONE CAPSULE BY MOUTH EVERY DAY Discharge Instructions Additional Instructions: Surgery: Left shoulder arthroscopy with extensive debridement (including removal of loose bodies), biceps tenodesis, subacromial decompression, and distal clavicle excision 01/12/25 Activity: You should gradually increase range of motion motion and use of your shoulder. You may use your shoulder for all regular activities while protecting biceps repair. Avoid any weighted elbow flexion or resisted supination for 6-8 weeks. No heavy lifting, reaching overhead, or lifting away from body for approximately 2-3 months. You may use the sling whenever you are out of the house for a few weeks. At home it is best to remove the sling and rest the arm on a pillow at your side or support the operative side with your other hand. A physical therapy prescription will be sent electronically to start in about 3 weeks. Prescriptions: Naproxen 250 mg take 1-2 every 12 hours with a meal as needed for moderate pain Tramadol 50 mg take 1 every 8 hours as needed for severe pain You may use xpto-vko-idkayvv Tylenol (acetaminophen) as needed for mild pain. These pain medications may be taken all at once or in different combinations as needed. Also, recommend Colace (docusate) as a stool softener as surgery and pain medicine cause constipation. You may try nqlr-yzs-pqizjug diphenhydramine (Benadryl) 25-50 mg nightly as a sleep aid Dressings: Remove shoulder bandage after 3 days. Leave the sticky Steri-Strips in place until they fall off or remove them after you shower. Cover the incisions with Band-Aids or leave them open to air. You may shower after 5 days. Follow-up: 10-[address] Lin You may take off the leg compression stockings this evening at home. You may also leave them on a few days longer if you have a history of leg swelling or edema. Let us know right away if you develop any redness, drainage, fevers, chest pain, or trouble breathing. Do not drink alcohol or drive for at least 24 hours after anesthesia. Please call the office during business hours with any questions or concerns. Stand Alone Forms: Anesthesia Discharge InstZachery Millard (U) Referrals: Ross Lin MD [ [facility] STAFF PHYSICIAN] - 01/23/25 10:15 am Discharge Orders Discharge Orders: Discharge Order (Routine); Ordered 01/12/25 Ordered By: Freida Ramirez DS: Diagnosis Discharge Diagnosis (1) Superior labrum uohaxkah-on-rijuqudio (SLAP) tear of left shoulder: Status: Acute (2) Loose body in left shoulder: Status: Acute (3) Bursitis of right shoulder: Status: Acute (4) Tendinopathy of left biceps: Status: Acute (5) Arthritis of left acromioclavicular joint: Status: Acute
--- NOTE | 2025-01-12 07:32 | ROE_ITS ---
Operative Note Operative Note PRE-OP DIAGNOSIS: Left shoulder 1. Loose body 2. LHB tendinopathy 3. Bursitis 4. AC joint arthritis POST-OP DIAGNOSIS: same PROCEDURE: Left shoulder 1. Arthroscopic biceps tenodesis, CPT# 60872. This involved arthroscopically sut uring and reattaching the long head of the biceps tendon to the proximal humerus at the superior margin of the bicipital groove with a screw at the correct tension. 2. Arthroscopic distal clavicle excision, CPT# 85967. This involved arthroscopically exposing the underside of the acromioclavicular joint, smoothing out bone spurs, and removing approximately 5 mm of the distal clavicle and acromion so there was no engaging bone left 3. Extensive debridement, CPT# 74078. This involved using arthroscopic hand instruments, power instruments, and radiofrequency instruments to release the long head of the biceps tendon and debride areas of labral tearing, synovitis, SLAP tearing, chondromalacia about the glenoid margin, and removing multiple loose bodies from the axillary recess working within the glenohumeral joint anteriorly, superiorly and posteriorly. 4. Subacromial decompression with partial acromioplasty, CPT# 65111. This involved using arthroscopic power instruments and a radiofrequency wand to complete a bursectomy and smooth the undersurface of the acromion. The specimen preparation assistant was medically required in order to help assist in techniques above, which require positioning the arm, holding the arthroscope, and manipulating multiple instruments and sutures at the same time. This cannot be done without the help of an experienced specimen preparation assistant. SURGEON: Ross Lin CORRESPONDENCE ANALYST: Freida Ramirez ANESTHESIA TYPE: Local By Surgeon, General LMA/ETT and Primary Nerve Block Refer to Anesthesia Record ESTIMATED BLOOD LOSS: 5 PATHOLOGY: none sent COMPLICATIONS: None Patient was transported to: PACU Patient's condition: stable Implants: Arthrex: 4.75mm SwiveLocks x 1 Indications: The patient was diagnosed with the above conditions and appropriately indicated for surgical intervention. Please see complete medical record for details. Findings: Exam under anesthesia: Full range of motion no instability Glenohumeral joint: Moderate anterior and superior synovitis. Hernandez labral fraying and degenerative tearing and moderate chondromalacia. SLAP tear. Biceps injection superior aspect bicipital groove. No articular rotator cuff tear. Subscapularis intact. Multiple small cartilaginous round loose bodies in the axillary recess. Subacromial space: Moderate bursitis. Intact rotator cuff. Engaging distal clavicle and acromion especially inferiorly. Procedure Description: In the operating room, general anesthesia was induced. Bilateral shoulders were examined. The patient was positioned in the beachchair position. All bony prominences were well-padded. Preoperative antibiotics were administered. The shoulder was prepped and draped in the usual sterile fashion. The correct patient, procedure, and side of the procedure were all verified prior to incisio n. Starting through the posterior portal a standard complete diagnostic arthroscopy was performed of the glenohumeral joint including inspection of the long head of the biceps, anterior and superior labrum, subscapularis tendon, supraspinatus and infraspinatus tendons, and axillary recess. The glenoid and humeral head cartilage as well as the posterior labrum were inspected from an anterior view ing portal. Significant findings and interventions noted above. Of note, the loose bodies in the axillary recess were quite reluctant to being drawn into the glenohumeral joint. The anterior and posterior portals had to be to redirected inferiorly into the axillary space before suction could be used to remove them and the larger in entirety through the rigid anterior cannula with a pituitary rongeur. It was about 5 x 5 mm and elpidio/round. The glenohumeral joint exercise were copiously irrigated to ensure any and all smaller debris was removed. An all-arthroscopic suprapectoral biceps tenodesis was performed through an anterior portal using a Loop N Tack method with a SutureTape FiberLink cinched around and through the tendon. The biceps was tenotomized from the labrum and fixated with a suture anchor at the superior margin of the bicipital groove. The extra knotless repair suture was placed around the biceps tendon stump, shuttled back through the anchor eyelet mechanism and nicely tensioned adding additional security to the repair. The tendon stump was mushroomed. The arm had good contour and the repair was stable to testing. Starting through the posterior portal, the arthroscope was directed into the subacromial space. A lateral 50 yard line lateral portal was created. A combination of power instruments and a radiofrequency ablator were used to debride bursitis anteriorly, posteriorly, and laterally as well as expose and smooth bone spurring on the undersurface of the acromion. The coracoacromial ligament was partially released. The bursectomy was completed viewing laterally and working from posteriorly and the rotator cuff was thoroughly inspected with findings noted above. The anterior portal was redirected towards the undersurface of the AC joint. A shaver and electrocautery device were used to clear soft tissue from the undersurface of the AC joint. The a couple millimeters of the medial acromion and few millimeters of the distal clavicle were removed and smoothed. Care was taken to ensure the superior capsule was not violated and the sufficient bone was removed and there was no impinging bone left behind. The shoulder was drained of arthroscopic fluid. All portal sites were copiously irrigated. These incisions were closed using 3-0 Monocryl in a buried fashion and then covered with Mastisol, Steri-Strips, Xeroform, dry gauze, and ABDs. The dressings were covered and secured with Medipore tape. The operative extremity was placed into a sling for immobilization. The patient awoke from anesthesia without complication and was transferred to the recovery room in a stable condition. Date of Procedure: 01/12/25
--- NOTE | 2025-01-12 10:29 | W.ANESPRE ---
General Info Date of Service Date Performed: 01/12/25 Height: 5 ft 10 in Weight: 84.4 kg Body Mass Index (BMI): 26.6 Surgical Procedure: Operation Date: 01/12/25 11:10 Proposed Procedure Side Surgeon p Shoulder Arthroscopy w/Extensive Debridement, Biceps Tenodesis, Subacromial Decompression, Distal Clavicle Excision Left Ross Lin MD Meds Allergies and Home Medications Allergies Allergy/AdvReac Type Severity Reaction Status Date / Time oxycodone AdvReac Intermediate Other (See Verified 01/12/25 10:03 Comment) Home Medication ?Medication ?Instructions ?Recorded fhwpejn-iozrknxtuwzmd-pxnqfmmz 250 2 tab PO Q6H PRN 06/20/18 mg-250 mg-65 mg tablet (Excedrin Migraine) duloxetine 60 mg capsule,delayed 60 mg PO DAILY 05/20/21 release sumatriptan succinate 50 mg tablet 50 mg PO PRN PRN 05/20/21 lisinopril 2.5 mg tablet 2.5 mg PO DAILY 08/24/24 Current Visit Medications: Current Medications Generic Name Dose Route Start Last Admin Trade Name Freq PRN Reason Stop Dose Admin Ringer's Solution 1,000 mls @ 30 mls/hr 01/12/25 06:00 IV 01/12/25 23:59 INFUSION HONG Cefazolin Sodium/Dextrose 2 gm in 50 mls @ 100 mls/hr 01/12/25 06:00 Ancef Duplex IVPB 01/12/25 23:59 PREOP HONG Tranexamic Acid/Sodium Chloride 1,000 mg in 100 mls @ 600 mls/hr 01/12/25 06:00 IVPB 01/12/25 23:59 PREOP HONG IV Miscellaneous Supplies 1 each 01/12/25 06:00 Iv Access IV 01/12/25 23:59 DIRECTED HONG Sodium Chloride 0 ml 01/12/25 06:00 Normal Saline Flush 10 Ml Syr IV 01/12/25 23:59 PRN PRN Sodium Chloride 0 ml 01/12/25 06:00 Normal Saline 10 Ml Vial IJ 01/12/25 23:59 DIRECTED PRN Sterile Water 0 ml 01/12/25 06:00 Water,Injection,Sterile 10 Ml Vial IJ 01/12/25 23:59 DIRECTED PRN Tramadol HCl 50 mg 01/12/25 07:10 Tramadol 50 Mg Tab PO 02/11/25 07:09 Q6H PRN PRN PFSH Active Problems Active Problems: Problem Status Onset Code Fracture of fifth metatarsal bone of left foot Acute S92.352A Bursitis of right shoulder Acute M75.51 Loose body in left shoulder Acute M24.012 Tendinopathy of left biceps Acute M67.922 Superior labrum sevepbkb-kq-hbufuqusn (SLAP) tear of left shoulder Acute S43.432A Hyperplastic colon polyp Acute K63.5 Panic disorder Acute F41.0 Screening for colon cancer Acute Z12.11 Medical History Medical History Essential hypertension affecting in second trimester Migraine headache Vertigo Arthritis of right acromioclavicular joint Scapulothoracic bursitis of right shoulder Partial tear of rotator cuff (~01/2017) Cervical spondylosis with radiculopathy (~01/2017) Carpal tunnel syndrome on right Cubital tunnel syndrome on right Scapular dyskinesis Tendonitis of long head of biceps brachii of right shoulder Bilateral shoulder bursitis SLAP lesion of right shoulder (~01/2017) Rhomboid pain Preventative health care Breast mass Screening for breast cancer Shoulder impingement syndrome Right shoulder pain Former smoker Surgical History Surgical History History of colonoscopy (~06/2022) S/P tubal ligation S/P laparoscopic appendectomy Status post arthroscopy of right shoulder (05/22/21) Right shoulder arthroscopy with biceps tenodesis, extensive debridement, subacromial decompression, and distal clavicle excision Hx of bursectomy Tobacco Smoking/Tobacco Use Status: Former Tobacco Use Passive smoking exposure: No Alcohol Alcohol Intake: current Alcohol intake frequency: a few times a month Substance Use Substance use type: does not use Vital Signs and Lab Results Vital Signs Most Recent Vital Signs in EMR: Most Recent Vital Signs Temp Pulse Resp BP Pulse Ox 36.6 C 76 16 168/106 H 100 01/12/25 10:10 01/12/25 10:10 01/12/25 10:10 01/12/25 10:10 01/12/25 10:10 Lab Results Blood Type / Crossmatch: No Data to Display Complete Blood Count: No Data to Display Complete Metabolic Panel: No Data to Display Liver Function Panel: No Data to Display Coagulation Panel: No Data to Display Cardiac Panel: No Data to Display Arterial Blood Gas: No Data to Display Venous Blood Gas: No Data to Display Pancreas Panel: No Data to Display Thyroid Panel: No Data to Display Infectious Disease: No Data to Display Blood Cultures: No Data to Display Toxicology Panel: No Data to Display Panel: No Data to Display Anesthesia Assessment and Plan Anesthesia History Personal History: No History of Anesthesia Complications Family History: No Family History of Anesthesia Complications Exercise Tolerance Exercise Tolerance: Metabolic Equivalents>4 Cardiac & Pulmonary Exam Cardiac Exam: Normal S1/S2 Heart Sounds Pulmonary Exam: Clear Bilateral Breath Sounds Implantable Cardiac Device Does patient have a Pacemaker or an ICD?: No Airway Exam Known Difficult Airway: No Mallampati Class: 1 Mouth Opening: Normal (> 3cm) Thyromental Distance: Greater than 3 cm Neck Range of Motion: Full ROM Neck Circumference: Normal Teeth Condition: Normal Dentition ASA Classification ASA Score: ASA 2 Emergency Case?: No NPO Status NPO Status: NPO Clears >2 hours, Solids >8 hours Status Status: Not Relevant due to Medical History Anesthesia Plan Resuscitation Status: Full Code Anesthesia Technique: General Anesthesia Airway Planned: Endotracheal Tube Pain Management: Surgeon and patient request nerve block Monitors Used: Standard Monitors Preoperative Comments:: 54 yo female for shoulder scope. Sig PMHx: HTN (lisinopril - none today), BINTA (CPAP), cervical spondylosis, former smoker, vertigo. Previous Anes: - colo, prop, natural airway, no issues. - shoulder, glide 3 grade 1. ISB with midaz, 10/10 exparel/bupiv - unsure how long block lasted, but discharged stated 0/10 pain.
[2025-01-12] MEDS: Lactated Ringers 1,000 ML 30 ML IV (10:30)
[2025-01-12] MEDS: ceFAZolin 2 GM/50 ML BAG IVPB (13:40)
[2025-01-12] MEDS: TRANEXAMIC ACID/SOD. CHL. 1,000 MG/100 ML BAG 600 MG IVPB (13:51)
[2025-01-12] MEDS: Bupivacaine 0.25% Pres-Free W/EPI 30 ML VIAL (14:17)
[2025-01-12] MEDS: EPINEPHrine 10 MG/10 ML ML (14:17)
--- NOTE | 2025-01-12 14:32 | W.ANESNERVE ---
Nerve Block Single Injection Procedure Date and Time Date Performed: 01/12/25 Procedure Start: 12:58 Location Where Procedure Performed Procedure Location: Day Surgery Unit Reason Performed: Postoperative Analgesia Requesting Provider: Ross Lin Timeout Performed Timeout Performed: Yes Monitoring Used ECG, Blood Pressure, SpO2 and See EMR for corresponding vital signs Sterility Sterility: Hand Hygiene, Surgical Cap, Surgical Mask, Sterile Gloves and Chlorhexidine Sedation Given During Procedure Sedation Given (Indicate Dose Given): Versed IV Dose:: 2mg Patient Mental Status Patient Mental Status: Awake Nerve Block 1st Nerve Block: Laterality: Left Block Type: Supraclavicular Ultrasound Image Saved?: Yes Needle / Catheter Used: 100mm SonoPlex II Local Anesthetic Bolus (Indicate Dose Given): Lidocaine used for local infiltration of skin, Injected in 3-5ml increments after negative blood aspiration, Bupivacaine 0.5% Dose:: 10mg and Exparel Dose:: 10mg Additives (Indicate Dose Given): None Ultrasound: Sterile probe cover and gel used Nerve Stimulator: Supplement to Ultrasound use and No twitch or parasthesia noted < 0.5 mA Paresthesia: None Procedure Tolerated: No Complications and Patient tolerated well Procedure Outcome: Successful Procedure Comment: Did not see great view of interscalene, but did have great view of Supra. Block straight forward. Performed By: Norbert Craig
[2025-01-12] MEDS: fentaNYL 100 MCG/2 ML VIAL IVP ×2 (15:55→16:10)
[2025-01-12] MEDS: HYDROmorphone 2 MG/ML SYR IVP ×2 (16:04→16:24)
[2025-01-12] MEDS: Ketorolac 30 MG/ML VIAL (16:15)
--- NOTE | 2025-01-12 16:49 | W.ANESPOSTOP ---
Postoperative Evaluation Date, Time and Location Date Performed: 01/12/25 Time Performed: 16:49 Patient Location: Day Surgery Unit Vital Signs Most Recent Imported Vital Signs: Most Recent Vital Signs Temp Pulse Resp BP Pulse Ox 36.5 C 56 L 17 150/98 H 98 01/12/25 16:35 01/12/25 16:36 01/12/25 16:36 01/12/25 16:35 01/12/25 16:36 Pain Score Most Recent Pain Score: Most Recent Pain Score Pain Level 5 01/12/25 16:29 Assessment Mental Status: Awake (Alert & Oriented to Patient Baseline) Airway and Respiratory Function: Patent airway with normal (patient baseline) respiratory exam Cardiovascular Function: Hemodynamically Stable Hydration Status: Adequately Hydrated Nausea & Vomiting: No Nausea or Vomiting Pain: Pain is Moderate or Severe Postoperative Pain Management: Pain being addressed with medication Peripheral Nerve Block: Regional nerve block not resolved at time of post operative discharge (Seems to have taken partial coverage, front of shoulder still quite sore)
[2025-01-12] MEDS: traMADol 50 MG TAB PO (17:00)
== END 2025-01-12 18:08 | disposition home or self-care (01) ==
LOC: SUR 09:44
PROVIDERS: PCP Physician Assistant; Visit Provider Student in an Organized Health Care Education/Training Program
PROC: (CPT 29805; principal; 2025-01-12 11:00)
DX: M75.52 Bursitis of left shoulder (principal); M19.012 Primary osteoarthritis, left shoulder; M24.012 Loose body in left shoulder; M67.922 Unspecified disorder of synovium and tendon, left upper arm; S43.432A Superior glenoid labrum lesion of left shoulder, initial encounter; M75.51 Bursitis of right shoulder; G89.18 Other acute postprocedural pain
CPT/HCPCS: 29828; 29824; 29823; 29826; 64415; J0131; J0665; J0666; J0690; J1100; J1171; J1885; J1920; J2250; J2371; J2405; J2704; J3010

== ENCOUNTER 2025-03-08 02:37 | Outpatient (CLI) | payer BC, SELFPAY ==
--- NOTE | 2025-03-08 07:30 | DI.MRI_ITS ---
Exam(s) MR UPPER JOINT RT WO EXAM: MR UPPER JOINT RT WO CLINICAL HISTORY: R SHOULDER PAIN,bursitis rt shoulder,m75.51. TECHNIQUE: Multiplanar multisequence MRI was performed. CR XR SHOULDER RT COMPLETE 2+V from 10/18/2024 FINDINGS: There is patient artifact present. BONES: There is no fracture or contusion pattern. Postsurgical changes are seen in the humeral head a nteriorly. JOINTS: Degenerative changes are seen at the acromioclavicular joint. The glenohumeral joint appears well maintained. There is a small glenohumeral joint effusion. TENDONS: Supraspinatus: There is no evidence of a tear of the supraspinatus tendon. Infraspinatus: There is no evidence of an infraspinatus tendon tear. Subscapularis: The subscapularis tendon is unremarkable. [place]: Unremarkable. Biceps and [place]: There is a question of repositioning of the long head of the biceps. The long hea d of the biceps is poorly visualized distally. Please correlate with patient's surgical history. MUSCLES: Unremarkable. GLENOID LABRUM: Unremarkable on this noncontrast examination. SOFT TISSUES: Unremarkable. LIGAMENTS: Unremarkable. OTHER: There is a small amount of hyperintense signal seen in the subacromial subdeltoid bursa. IMPRESSION: 1. Examination limited by patient motion artifact. 2. No evidence of a rotator cuff tear. 3. Postsurgical changes seen in the humeral head anteriorly. Question of repositioning of the long h ead of the biceps. Please correlate with the patient's surgical history. 4. Small amount of hyperintense signal seen in the subacromial subdeltoid bursa which may represent a mild bursitis. 5. Small glenohumeral joint effusion. 6. Postsurgical artifact and/or degenerative changes seen at the acromioclavicular joint. DATA REPOSITORY:
== END 2025-03-08 02:57 ==
LOC: DI 02:37
PROVIDERS: PCP Physician Assistant; Visit Provider Student in an Organized Health Care Education/Training Program
DX: M75.51 Bursitis of right shoulder (principal)
CPT/HCPCS: 73221

== ENCOUNTER 2025-03-14 02:48 | Outpatient (CLI) | payer BC, SELFPAY ==
--- NOTE | 2025-03-14 09:44 | DI.RAD_ITS ---
Exam(s) RF JOINT INJ. FLUORO GUID RAD EXAM: RF JOINT INJ. FLUORO GUID RAD CLINICAL HISTORY: R SHOULDER PAIN,FLUORO GUIDED INJ,M94.211,CHONDROMALACIA RT SHOULDER. The Patient has had persistent right shoulder pain. Noninvasive measures have been tried. To serve as both nguyễn gnostic and therapeutic, an injection under fluoroscopy was recommended. The risks of the procedure were discussed with their Orthopedic provider and the patient elected to proceed. TECHNIQUE: 2D and realtime digital imaging was performed. CONTRAST MATERIAL: Water soluble contrast was utilized. COMPARISON: No exams were available for comparison FINDINGS: The Patient was greeted in the fluoroscopy room. The correct side was identified and the consent was reviewed with the patient and was signed. The patient was properly positioned on the fluoroscopy ta ble. The right shoulderwas then prepped and draped. The right shoulder injection starting point was identified by the bony landmarks and fluoroscopy. The skin and soft tissue in the tract of the inje ction was anesthetized with 1% Bupivacaine. A spinal needle was then inserted into the right shoulde r joint at the level of the glenohumeral joint under fluoroscopic guidance. A small amount of Omnipa que solution was injected to confirm intraarticular placement. Once confirmed, the right shoulder wa s injected with 5cc of a solution containing 0.5% Bupivacaiine and 40 mg of Depo-Medrol. A bandaid w as placed on the injection site. The patient tolerated the procedure well and left the department in good condition. IMPRESSION: Successful right shoulder injection. RADIATION DOSE DELIVERED: Ka,r=0.93 mGy
[2025-03-14] MEDS: methylPREDNISolone ACETATE 40 MG/ML VIAL IM (09:46)
[2025-03-14] MEDS: Omnipaque 300 MG/ML 10 ML BTL 5 ML IJ (09:47)
[2025-03-14] MEDS: Normal Saline - Diluent 50 ML VIAL 10 ML IJ (09:48)
[2025-03-14] MEDS: Bupivacaine 0.5% Pres-Free 10 ML VIAL 8 ML IJ (09:50)
== END 2025-03-14 03:08 ==
PROVIDERS: PCP Physician Assistant; Visit Provider Student in an Organized Health Care Education/Training Program
DX: M94.211 Chondromalacia, right shoulder (principal)
CPT/HCPCS: 20610; 77002; J0665; J1010

== ENCOUNTER 2025-09-28 14:08 | Outpatient (REF) | payer BC, SELFPAY ==
[2025-09-28 18:59] LABS: ALT 17 U/L (10-49); AST 21 U/L (<34); Albumin 4.2 g/dL (3.2-5.0); Alkaline Phosphatase 84 U/L (46-116); Anion Gap 9.2 mmol/L (3-11); BUN 18 mg/dL (9-23); Bilirubin, Total 0.6 mg/dL (0.2-1.2); CO2 24.8 mmol/L (20.0-31.0); Calcium 9.0 mg/dL (8.3-10.6); Chloride 108 mmol/L (98-107); Glucose 99 mg/dL (74-106); Potassium 4.3 mmol/L (3.5-5.1); Sodium 142 mmol/L (136-145); Total Protein 6.7 g/dL (5.7-8.2)
== END 2025-09-28 14:09 | disposition home or self-care (01) ==
LOC: NCHCN 14:08
PROVIDERS: PCP Physician Assistant; Visit Provider Physician Assistant
DX: I10 Essential (primary) hypertension (principal)
CPT/HCPCS: 80053; 83721